=== PATIENT | male | born 1980 | race Caucasian/White ===

== ENCOUNTER 2016-06-27 14:13 | Day surgery (SDC) | payer OTHER ==
[~2016-06-27] VITALS: Ht 180.3 cm; Wt 86.2 kg
[~2016-06-27 14:13] MED LIST: DOCU-160 PO; POLY17PO6 PO
[2016-06-27 15:00] VITALS: Ht 180.3 cm; Wt 86.2 kg
[2016-06-27] MEDS ORDERED: MUSCLE SPASM MED (15:04)
[2016-06-27] MEDS ORDERED: IBUPROFEN (15:04)
[2016-06-27] MEDS ORDERED: NORCO (15:04)
[2016-06-27] MEDS ORDERED: PROPOFOL 40 ML ONE (15:51)
[2016-06-27] MEDS ORDERED: LIDOCAINE 2% (SDV) 5 ML INJ ONE (15:51)
[2016-06-27 15:59] VITALS: BP 120/81; PULSE 71; RESP 16
[2016-06-27 16:50] VITALS: BP 110/63; RESP 20
--- NOTE | 2016-06-28 04:28 | GILP ---
DATE OF PROCEDURE: NAME OF PROCEDURE: Colonoscopy. SURGEON: Tita Olivera MD PREOPERATIVE DIAGNOSES: Rectal bleeding. POSTOPERATIVE DIAGNOSES: 1. Colonoscopy all the way to the cecum. 2. Internal hemorrhoids. 3. No colitis or neoplasm was identified. INDICATION FOR THE PROCEDURE: Mr. Evelio Machado is a 35-year-old male patient who had rectal bleedi ng. The patient was scheduled for colonoscopy for further evaluation. The procedure and possible complications were well explained to the patient. The patient understood and consented to the procedure. DESCRIPTION OF PROCEDURE: Under the influence of anesthesia, the colonoscope was carefully introduc ed in the rectum and under direct vision, it was advanced all the way to the cecum. FINDINGS: The patient had internal hemorrhoids. No colitis or neoplasm was identified. The patient tolerated the procedure very well and there was no complication from the procedure. At the end of the procedure, he was awake with stable vital signs and he was discharged home to the car e of his family. IMPRESSION: 1. Colonoscopy all the way to the cecum. 2. Internal hemorrhoids. PLAN: Anusol-HC 2.5% cream at bedtime p.r.n. Dictated By: TITA OLVERA/ALICIA Conf#: [id number] DID#: [id number] CC: TITA OLIVERA MD;*EndCC*
== END 2016-06-27 17:00 | disposition home or self-care (01) ==
LOC: GIL 14:13
PROVIDERS: ATTEND Internal Medicine Gastroenterology
DX: K64.8 Other hemorrhoids (principal)
CPT/HCPCS: 45378; Z7610

== ENCOUNTER 2018-12-08 08:10 | Emergency (ER) | payer OTHER ==
[~2018-12-08] VITALS: Ht 182.9 cm; Wt 81.1 kg
[~2018-12-08 08:10] MED LIST changes: +ACET500C5 PO; +BACITUD TOP; -DOCU-160 PO; +IBUPROFEN; +MUSCLE SPASM MED; +NORCO; -POLY17PO6 PO
[2018-12-08 08:12] VITALS: BP 153/69; PULSE 111; RESP 18; Ht 182.9 cm; Wt 81.1 kg
== END 2018-12-08 08:38 | disposition home or self-care (01) ==
LOC: FTE 08:10
DX: Z48.02 Encounter for removal of sutures (principal)
CPT/HCPCS: 99281